=== PATIENT | female | born 1940 | race Caucasian/White ===

== ENCOUNTER → 2023-09-13 | Outpatient (CLI) | payer OTHER ==
[~2023-09-13] MED LIST: BACL10TA PO; DULO20CA18 PO; FLUT16H NS; GABA-529 PO; GLIM1TAB18 PO; LOSA25TA41 PO; MAGN100T6 PO; PROP225T3 PO; RIVA15TA PO; ROSU40TA21 PO; SPIR50TA5 PO; TRAZ-185 PO
== END | disposition home or self-care (01) ==
LOC: CANSCHCLI → RAH 12:53
PROVIDERS: ATTEND Family Medicine
DX: M81.0 Age-related osteoporosis without current pathological fracture (principal)
CPT/HCPCS: 77080

== ENCOUNTER → 2024-04-27 | Outpatient (CLI) | payer OTHER ==
[~2024-04-27] MED LIST changes: -GLIM1TAB18 PO; +GLIM1TAB56 PO; -ROSU40TA21 PO; +ROSU40TA88 PO
[2024-04-27] MEDS: REGADENOSON 0.4 MG/5 ML PF SYG IVP ONE (13:33)
--- NOTE | 2024-04-27 19:09 | HMCSR ---
APPROVED REPORT Height: 5 ft 7in Weight: 150 lbs TEST INDICATIONS CHEST PAIN UNSPECIFIED The imaging protocol used to acquire images was Rest Tc-99m/stress Tc-99m 1 day Consent: The procedure was explained and understood by the patient. Informerd consent was witnessed Deepak Rome RN First, low dose rest was performed then high dose stress. RESTING DATA: The resting ekg shows: NSR Rest SPECT myocardial perfusion imaging was performed in supine position 70 minutes following the int ravenous injection of 12 mCi of Tc-99 Sestamibi. Time of rest injection: 08:07: Date: 04/27/2024 Time of rest imagin:13: Date: 04/27/2024 PHARMACOLOGIC STRESS: Pharmacologic stress test was performed by injecting regadenoson 0.4 mg IV push followed by the intra venous injection of 31 mCi of Tc-99 Sestamibi. Time of stress injection: 09:42: Date: 04/27/2024 Time of stress imagin:25: Date: 04/27/2024 Heart Rate at time of stress injection: 59 bpm. Gated Stress SPECT was performed 103 minutes after stress injection. The images were gated to evaluate regional wall motion and calculate left ventricular ejection fracti on. STRESS DETAILS Reason for Termination: Infusion complete Stress Symptoms: Cough, Dry throat Max HR Achieved: 78 bpm % of APMHR Achieved: 57 Max Blood Pressure: 165/85 mmHg Stress ECG: NSR Study quality was good. Lung uptake was Normal. Artifact: No artifact IMPRESSION Normal pharmacologic nuclear stress test. Conclusion Normal perfusion. LVEF >70%.
== END | disposition home or self-care (01) ==
LOC: SHCH 07:39
PROVIDERS: ATTEND Internal Medicine Cardiovascular Disease
DX: R07.9 Chest pain, unspecified (principal); R05.9 Cough, unspecified
CPT/HCPCS: 78452; 93017; J2785; A9500 ×2

== ENCOUNTER → 2024-05-15 | Outpatient (CLI) | payer OTHER ==
--- NOTE | 2024-05-22 09:03 | HMCSR ---
APPROVED REPORT Laterality: Bilateral Indications r07.9 Doppler Spectral Velocity Analysis PSV / EDVPSV / EDV ECA (R) 51 / cm/sECA (L) 48 / cm/s dICA (R) 68 / 23 cm/sdICA (L) 66 / 17 cm/s Vani (R) 58 / 19 cm/smICA (L) 75 / 18 cm/s pICA (R) 39 / 12 cm/spICA (L) 42 / 18 cm/s dCCA (R) 39 / 12 cm/sdCCA (L) 62 / 13 cm/s mCCA (R) 57 / 11 cm/smCCA (L) 64 / 13 cm/s pCCA (R) 52 / 11 cm/spCCA (L) 53 / 11 cm/s Vert (R) 36 / cm/sVert (L) 38 / cm/s Subl. (R) 117 / cm/sSubl. (L) 114 / cm/s ICA/CCA 1.19ICA/CCA 1.17 Technologist Impression Minimal plaque noted in the bilateral carotids, without hemodynamic significance. Bilateral vertebral arteries appear antegrade. Conclusion bilateral atherosclerotic plaquing with no hemodynamically significant carotid stenosis. Conclusion bilateral atherosclerotic plaquing with no hemodynamically significant carotid stenosis.
== END | disposition home or self-care (01) ==
LOC: SHCH 10:59
PROVIDERS: ATTEND Internal Medicine Cardiovascular Disease
DX: I65.23 Occlusion and stenosis of bilateral carotid arteries (principal); R07.9 Chest pain, unspecified; I10 Essential (primary) hypertension; E11.40 Type 2 diabetes mellitus with diabetic neuropathy, unspecified; E78.5 Hyperlipidemia, unspecified; G47.33 Obstructive sleep apnea (adult) (pediatric); I48.4 Atypical atrial flutter; I49.9 Cardiac arrhythmia, unspecified
CPT/HCPCS: 93880

== ENCOUNTER → 2024-11-02 | Outpatient (CLI) | payer OTHER ==
[2024-11-02 22:18] VITALS: PULSE 64; RESP 18
[2024-11-02 23:00] VITALS: PULSE 60; RESP 20
[2024-11-02 23:30] VITALS: PULSE 60; RESP 20
[2024-11-03] VITALS (11 sets, daily range): PULSE 52–68; RESP 16–22
--- NOTE | 2024-11-03 02:17 | NUR ---
BUSPIRONE 5MG,XARELTO 15MG, ROSUVASTATIN 20MG,TRAZADONE 50MG,GLIMPERIDE, FLUTICASONE NASAL Addendum: 11/03/24 at 0224 by ZAKI BATES Amended: Links added.
== END | disposition home or self-care (01) ==
LOC: SLP 19:48
PROVIDERS: ATTEND Family Medicine
DX: G47.33 Obstructive sleep apnea (adult) (pediatric) (principal); R06.83 Snoring; I10 Essential (primary) hypertension; E11.9 Type 2 diabetes mellitus without complications; R53.83 Other fatigue; F41.8 Other specified anxiety disorders; M79.7 Fibromyalgia; R35.0 Frequency of micturition; M25.50 Pain in unspecified joint; M54.9 Dorsalgia, unspecified; M54.2 Cervicalgia
CPT/HCPCS: 95810

== ENCOUNTER → 2025-01-08 | Outpatient (CLI) | payer OTHER ==
[~2025-01-08] MED LIST changes: -PROP225T3 PO; +PROP225T8 PO
[2025-01-08 21:41] VITALS: PULSE 62; RESP 15
[2025-01-08 22:18] VITALS: PULSE 53; RESP 17
[2025-01-08 22:46] VITALS: PULSE 48; RESP 19
[2025-01-08 23:08] VITALS: PULSE 57; RESP 17
[2025-01-08 23:30] VITALS: PULSE 53; RESP 21
[2025-01-09] VITALS (14 sets, daily range): PULSE 50–67; RESP 14–29
== END | disposition home or self-care (01) ==
LOC: SLP 20:16
PROVIDERS: ATTEND Family Medicine
DX: G47.33 Obstructive sleep apnea (adult) (pediatric) (principal); R06.83 Snoring
CPT/HCPCS: 95811